=== PATIENT | female | born 1945 | race Caucasian/White ===

== ENCOUNTER 2016-06-21 10:20 | Emergency (ER) | payer MEDICARE, OTHER ==
[2016-06-21 10:33] VITALS: BP 149/71
--- NOTE | 2016-06-21 10:55 | ERNOTE ---
Upper Extremity HPI - General Extremities Pain Location: shoulder: right - fell and caught herself with right arm Time Seen by Provider: 06/21/16 10:46 Source: patient Exam Limitations: no limitations - Immun/Allergies/Home Medications Allergies/Adverse Reactions: Allergies Allergy/AdvReac Type Severity Reaction Status Date / Time No Known Allergies Allergy Verified 06/21/16 10:26 Home Medications: HOME MEDICATIONS Aspirin 81 mg PO DAILY 06/21/16 [Last Taken Unknown] Calcium Carbonate [Calcium] 500 mg PO DAILY 06/21/16 [Last Taken Unknown] - History of Present Illness Narrative: Has had difficulty raising right arm since falling. can move arm otherwise without difficulty Occurred: yesterday Location of Incident: home Severity: moderate Method of Injury: Reports: fell Reason for Fall: Reports: tripped - over bailing twine Loss of Consciousness: Reports: no loss of consciousness Modifying Factors - (Improves): Reports: immobilization Modifying Factors - (Worsens): Reports: movement - adduction or flexion Associated Symptoms: Denies: tingling, weakness Other Injuries: Reports: none Review of Systems - Review of Systems Constitutional: Absent: recent illness EYE: Present: no symptoms reported ENT: Present: no symptoms reported Respiratory: Present: no symptoms reported Cardiology: Present: no symptoms reported Gastrointestinal/Abdominal: Present: no symptoms reported Genitourinary: Present: no symptoms reported Musculoskeletal: Present: See HPI. Absent: back pain Neurological: Absent: numbness, tingling Endocrine: Present: no symptoms reported Hematologic/Lymphatic: Present: no symptoms reported Psych: Present: no symptoms reported - Patient's Past Medical History Patient History - Surgical Procedures: Hysterectomy LMP (females 10-50): Menopausal - Family History Mother Family History - Medical: Father Family History - Medical: Family History - Cardiac/Respiratory: Myocardial Infarction Sister Family History - Cancer: Breast, Other Brother Family History - Medical: Family History - Cardiac/Respiratory: Myocardial Infarction - Social History Living Situations: home Smoking Status: Never smoker Have you smoked in the past 12 months: No Do you dip or chew tobacco: No Alcohol Use: none Drug Use: none Physical Exam - Physical Exam General Appearance: Present: wd/wn, alert, no apparent distress Ears, Nose, Throat: Present: normal ENT inspection Neck: Present: normal inspection, nontender Respiratory: Present: no respiratory distress Extremity Exam: Present: non-tender - to palpation, decreased range of motion - right shoulder in flexion and abduction Neurological Exam: Present: alert, oriented, normal mood/affect, no motor/ sensory deficits Skin Exam: Present: normal color, warm/dry ED Progress - Vital Signs Vital Signs: Vital Signs 06/21/16 10:26 Temperature 37.3 C Pulse Rate 93 Respiratory 16 Rate Blood Pressure 149/71 O2 Sat by Pulse 100 Oximetry - X-Ray X-Ray #1 X-Ray: shoulder - Right. No fracture or dislocation. mild anterior subuxation of the humeral head on axillary view suggesting underlying instablility. Interpretation: Reviewed by me - Progress/Reassessment Chief Complaint: Upper Extremity Injury/Problem Progress:: Unchanged Departure Clinical Impression: Right shoulder strain Qualifiers: Encounter type: initial encounter Qualified Code(s): S46.911A - Strain of unspecified muscle, fascia and tendon at shoulder and upper arm level, right arm , initial encounter - Departure Disposition: Home Follow Up Needed Condition: Fair Instructions: RICE for Routine Care of Injuries, Eabc-[id number]-Evct, Muscle Strain, Umpz-ir-Hyoc Additional Instructions: Do pendulum swings (exercises taught in the ER) twice a day. You may take ibuprofen 2-3 over the counter tablets (400-600mg) three times a day for 1-2 weeks. See your regular doctor within 1-2 weeks
--- OUTSIDE RECORDS SUMMARY | 2016-06-21 10:56 | XMS REPORT | Continuity of Care Document ---
:1945 Author Organization [facility] ([facility]) [place] [address] Phone [phone] Care Team Providers Name Role Phone Unavailable Primary Care Provider Unavailable Source Comments This disclosure is being made pursuant to the Care Everywhere program, applicable federal and state laws, and may not contain all informaitonavailable regarding this patient.[facility] ([facility]) Active Allergies and Adverse Reactions Not on File Current Medications Not on file Active Problems Problem Noted Date Primary localized osteoarthrosis, lower leg 06/22/2002 Social History Tobacco Use Types Packs/Day Years Used Date Never Assessed Plan of Care Health Maintenance Due Date Last Done Comments Hepatitis B Vaccine (1 of 3 - Primary Series) 1945 Tdap Vaccine 1954 Lipid Disorder Screening 1961 Td Vaccine 1961 Mammogram 1983 Colonoscopy 05/22/1993 Zoster Vaccine 2003 Osteoporosis Screening (DXA Bone Density) 2008 Pneumococcal Vaccine (1 of 2 - PCV13) 2008 Influenza Vaccine: Seasonal (#1) 11/10/2015 Results from Last 3 Months Not on file
== END 2016-06-21 11:46 | disposition home or self-care (01) ==
LOC: ER 10:20
DX: S46.911A Strain of unspecified muscle, fascia and tendon at shoulder and upper arm level, right arm, initial encounter (principal); W01.0XXA Fall on same level from slipping, tripping and stumbling without subsequent striking against object, initial encounter; Y93.9 Activity, unspecified; Y92.009 Unspecified place in unspecified non-institutional (private) residence as the place of occurrence of the external cause; Y99.9 Unspecified external cause status

== ENCOUNTER 2017-01-10 11:59 | Day surgery (SDC) | payer MEDICARE, OTHER ==
[2017-01-10] MEDS ORDERED: TETRACAINE HCL 150 DROP BTL RIGHTEYE ONE (12:34)
[2017-01-10 13:05] VITALS: BP 165/90
== END 2017-01-10 12:00 | disposition home or self-care (01) ==
LOC: AMB 11:59
PROVIDERS: ATTEND Ophthalmology
PROC: [UNRECOGNIZED PROCEDURE] (principal; 2017-01-10 13:00)
DX: H40.033 Anatomical narrow angle, bilateral (principal)

== ENCOUNTER 2017-01-24 12:12 | Day surgery (SDC) | payer MEDICARE, OTHER ==
[2017-01-24] MEDS ORDERED: TETRACAINE HCL 150 DROP BTL OP ONE (14:40)
== END 2017-01-24 12:13 | disposition home or self-care (01) ==
LOC: AMB 12:12
PROVIDERS: ATTEND Ophthalmology
PROC: [UNRECOGNIZED PROCEDURE] (principal; 2017-01-24 13:00)
DX: H40.032 Anatomical narrow angle, left eye (principal); Z68.38 Body mass index [BMI] 38.0-38.9, adult